=== PATIENT | male | born 1945 | race Two or more races ===

== ENCOUNTER → 2017-08-10 | Emergency (ER) | payer OTHER ==
[~2017-08-10] VITALS: Ht 167.6 cm; Wt 92.1 kg
[~2017-08-10] MED LIST: GRALISE1 EACH; LISINOPRIL10 MG; SIMVASTATIN20 MG
== END | disposition home or self-care (01) ==
LOC: ER 17:32
DX: R50.9 Fever, unspecified (principal); M54.89 Other dorsalgia; J11.1 Influenza due to unidentified influenza virus with other respiratory manifestations

== ENCOUNTER 2020-10-03 09:58 | Outpatient (CLI) | payer OTHER ==
[2020-10-04] MEDS ORDERED: PROTONIX40 MG PO (14:32)
[2020-10-04] MEDS ORDERED: TOPROL XL100 M1 PO (14:32)
== END 2020-10-03 10:02 | disposition home or self-care (01) ==
LOC: TOM 09:58
PROVIDERS: ATTEND Surgery
DX: Q61.8 Other cystic kidney diseases (principal); K40.90 Unilateral inguinal hernia, without obstruction or gangrene, not specified as recurrent; C7A.026 Malignant carcinoid tumor of the rectum; R59.0 Localized enlarged lymph nodes; K92.1 Melena

== ENCOUNTER 2020-10-04 10:00 | Inpatient (IN) | payer OTHER ==
[~2020-10-04] VITALS: Ht 170.2 cm; Wt 86.2 kg
[2020-10-04] MEDS ORDERED: PROTONIX40 MG PO (14:32)
[2020-10-04] MEDS ORDERED: TOPROL XL100 M1 PO (14:32)
[2020-10-11] MEDS ORDERED: METOPROLOL TAR100 MG (08:05)
[2020-10-11] MEDS ORDERED: GABAPENTIN100 M2 (08:05)
[2020-10-11] MEDS ORDERED: FAMOTIDINE40 MG (08:06)
[2020-10-14] MEDS ORDERED: PRILOSEC OTC20 MG PO (10:58)
[2020-10-14] MEDS ORDERED: PERCOCET 5-3251 EACH PO (10:58)
== END 2020-10-14 12:21 | disposition home or self-care (01) | DRG 331 ==
LOC: SURH 10-11 06:05 → O/R 10-11 06:05 → SURH 10-11 07:00
PROVIDERS: ADMIT Surgery; ATTEND Surgery
PROC: 0DTP4ZZ Resection of Rectum, Percutaneous Endoscopic Approach (ICD-10-PCS; 2020-10-11)
PROC: 07BC4ZZ Excision of Pelvis Lymphatic, Percutaneous Endoscopic Approach (ICD-10-PCS; 2020-10-11)
PROC: 0DTN4ZZ Resection of Sigmoid Colon, Percutaneous Endoscopic Approach (ICD-10-PCS; principal; 2020-10-11 07:00)
DX: C18.7 Malignant neoplasm of sigmoid colon (principal); R59.0 Localized enlarged lymph nodes; K63.5 Polyp of colon; I10 Essential (primary) hypertension; F17.200 Nicotine dependence, unspecified, uncomplicated

== ENCOUNTER 2020-10-04 12:56 | Outpatient (CLI) | payer OTHER ==
[2020-10-04] MEDS ORDERED: PROTONIX40 MG PO (14:32)
[2020-10-04] MEDS ORDERED: TOPROL XL100 M1 PO (14:32)
== END 2020-10-04 14:20 | disposition home or self-care (01) ==
LOC: LAB 12:56
PROVIDERS: ATTEND Surgery
DX: J44.9 Chronic obstructive pulmonary disease, unspecified (principal); Z20.822 Contact with and (suspected) exposure to COVID-19; K62.5 Hemorrhage of anus and rectum; C7A.026 Malignant carcinoid tumor of the rectum; R59.0 Localized enlarged lymph nodes; K92.1 Melena; Z03.818 Encounter for observation for suspected exposure to other biological agents ruled out

== ENCOUNTER 2021-03-13 07:35 | Day surgery (SDC) | payer OTHER ==
[~2021-03-13 07:35] MED LIST changes: +FAMOTIDINE40 MG; +GABAPENTIN100 M2; +METOPROLOL TAR100 MG; +PERCOCET 5-3251 EACH PO; +PRILOSEC OTC20 MG PO; +PROTONIX40 MG PO; +TOPROL XL100 M1 PO
== END 2021-03-13 14:20 | disposition home or self-care (01) ==
LOC: AMB-ENDOS 07:35
PROVIDERS: ATTEND Surgery
DX: K62.89 Other specified diseases of anus and rectum (principal); K64.2 Third degree hemorrhoids; Z20.822 Contact with and (suspected) exposure to COVID-19